=== PATIENT | female | born 1940 | race Caucasian/White ===

== ENCOUNTER → 2018-07-07 | Outpatient (CLI) | payer OTHER ==
[~2018-07-07] MED LIST: ASPIRIN325 PO; CALCIUM 600 +1 EAC1 PO; CENTRUM SILVER1 EAC2 PO; CYMBALTA60 MG PO; DIOVAN HCT 1601 EAC1 PO; FIBER500 MG PO; FISH OIL 1,001000 M2 PO; FLONASE 0.05%50 MCG NASAL; JANUMET XR 1001 EACH PO; LIPITOR 20 MG T20 M1 PO; NEXIUM40 MG PO; RECLAST 55 MG/1002 IV; TOPROL XL100 MG PO; TYLENOL325 MG PO; VALIUM5 MG PO; VITAMINC500 PO
== END ==
LOC: NUC 10:12
DX: M85.89 Other specified disorders of bone density and structure, multiple sites (principal); M81.0 Age-related osteoporosis without current pathological fracture; Z78.0 Asymptomatic menopausal state

== ENCOUNTER → 2019-03-31 | Outpatient (CLI) | payer OTHER ==
[~2019-03-31] VITALS: Ht 175.3 cm; Wt 59.0 kg
[~2019-03-31] MED LIST changes: +DIAZEPAM 2MG TAB2 MG PO; +FIBER LAXATIVE500 MG PO; +MULTIVITAMINS1 EAC7 PO; +PRANDIN2 MG PO; +PROLIA60 MG/1 ML SUBQ
--- NOTE | ~2019-03-31 | P ---
[facility] [place] [address] PROCEDURE REPORT Name: AMBERLY RANGEL Room #: REG [facility]#: [id number] Admission: 03/31/19 Attend Phys: Alberto Haque MD Discharge: Date of : 42 Report #: [id number] THIS REPORT FOR: //name// CC: Alberto Ceballos MD DATE OF SERVICE: 03/31/2019 OUTPATIENT COLONOSCOPY REPORT BRIEF HISTORY: The patient is a 79-year-old woman for average risk screening colonoscopy. PREOPERATIVE DIAGNOSIS: Average risk screening colonoscopy. POSTOPERATIVE DIAGNOSIS: Moderate sigmoid diverticulosis coli. MEDICATIONS: Deep sedation with propofol per Anesthesia. SPECIMEN: None. ESTIMATED BLOOD LOSS: None. PROCEDURE: Colonoscopy to cecum and terminal ileum. FINDINGS: Prior to propofol sedation, procedure of colonoscopy discussed with the patient as well as potential risks and its complications. She indicates she understands and desires to proceed. DESCRIPTION OF PROCEDURE: With the patient in left lateral decubitus position, digital examination was completed, which revealed no abnormalities. Subsequently, the Olympus video colonoscope was introduced in the rectum, advanced under direct vision to the cecum. Done with some difficulty, but the cecum was reached, identified by the ileocecal valve and the appendiceal orifice. I was able to visualize the distal segment of terminal ileum, which was inspected and noted to be unremarkable. At that point, the scope was slowly withdrawn and careful circumferential views obtained. Upon slow withdrawal of the scope, the prep was limited in the proximal colon. She did have difficulty with the prep, although she reported the stools were clear. There was a thin stool material adherent to the noyola of the proximal colon all obviously not be removed. We irrigated as best we can and suctioned as best we can but could not remove all the material. The views of the proximal colon were fair. However, as we withdrew the scope distally, the prep improved in the distal colon and the prep was estimated to be good. The mucosa was within normal limits, normal vascular pattern, and normal light reflex. No neoplastic lesions were seen. [facility] [address] [place] [address] PROCEDURE REPORT Name: AMBERLY RANGEL Caty Room #: REG [facility]#: [id number] Admission: 03/31/19 Attend Phys: Alberto Haque MD Discharge: Date of : 42 Report #: [id number] However, due to the adherent material in the proximal colon, a small lesion could have been overlooked. In the sigmoid colon, there was [id number] diverticular disease without endoscopic evidence of diverticulitis. Scope was withdrawn in the rectum, no abnormalities were seen. Upon retroflexion, no abnormalities were seen. Scope was withdrawn. The patient tolerated the procedure well. CONDITION OF THE PATIENT UPON DISCHARGE: Following procedure, the patient drowsy, aroused, conversant and will be discharged home when fully ambulatory. INSTRUCTIONS TO THE PATIENT AND FAMILY AT THE TIME OF DISCHARGE: No neoplastic lesions were seen. In view of the limitations of prep in the proximal colon, suggest followup colon exam. I would suggest consideration of colonoscopy in about 3 years. She will return to the care of Dr. Ceballos and return to see me as needed. By: [id number] Alberto Haque MD /nt
== END | disposition home or self-care (01) ==
LOC: GI 03-10 06:40
DX: Z12.11 Encounter for screening for malignant neoplasm of colon (principal); K57.30 Diverticulosis of large intestine without perforation or abscess without bleeding; I10 Essential (primary) hypertension; E11.9 Type 2 diabetes mellitus without complications; E78.00 Pure hypercholesterolemia, unspecified; K21.9 Gastro-esophageal reflux disease without esophagitis; M81.0 Age-related osteoporosis without current pathological fracture; Z98.890 Other specified postprocedural states; Z79.899 Other long term (current) drug therapy; Z91.041 Radiographic dye allergy status; Z90.5 Acquired absence of kidney; Z90.49 Acquired absence of other specified parts of digestive tract; Z85.528 Personal history of other malignant neoplasm of kidney; Z88.0 Allergy status to penicillin; Z95.1 Presence of aortocoronary bypass graft; Z79.82 Long term (current) use of aspirin
CPT/HCPCS: 62110; 62900

== ENCOUNTER → 2019-04-26 | Outpatient (CLI) | payer OTHER | LOC: SJCVCIMAG 04-20 09:59 | DX: I25.10 Atherosclerotic heart disease of native coronary artery without angina pectoris (principal); E78.00 Pure hypercholesterolemia, unspecified; I70.1 Atherosclerosis of renal artery; E11.9 Type 2 diabetes mellitus without complications; I10 Essential (primary) hypertension; I65.23 Occlusion and stenosis of bilateral carotid arteries; R07.9 Chest pain, unspecified ==

== ENCOUNTER → 2019-05-23 | Outpatient (CLI) | payer OTHER | LOC: SJCVCIMAG 11:31 | DX: I08.8 Other rheumatic multiple valve diseases (principal); I25.10 Atherosclerotic heart disease of native coronary artery without angina pectoris; E11.9 Type 2 diabetes mellitus without complications ==

== ENCOUNTER → 2020-01-30 | Outpatient (CLI) | payer OTHER | LOC: SJCVCIMAG 13:03 | PROVIDERS: ATTEND Internal Medicine Cardiovascular Disease | DX: I65.23 Occlusion and stenosis of bilateral carotid arteries (principal); R94.31 Abnormal electrocardiogram [ECG] [EKG]; I25.10 Atherosclerotic heart disease of native coronary artery without angina pectoris; I10 Essential (primary) hypertension; E78.00 Pure hypercholesterolemia, unspecified; E11.9 Type 2 diabetes mellitus without complications; I70.1 Atherosclerosis of renal artery; Z79.899 Other long term (current) drug therapy ==

== ENCOUNTER → 2020-02-09 | Outpatient (CLI) | payer OTHER | LOC: SJCVCIMAG 08:55 | PROVIDERS: ATTEND Internal Medicine Cardiovascular Disease | DX: R00.0 Tachycardia, unspecified (principal); I25.10 Atherosclerotic heart disease of native coronary artery without angina pectoris; Z79.82 Long term (current) use of aspirin; Z79.899 Other long term (current) drug therapy ==

== ENCOUNTER → 2020-09-12 | Outpatient (CLI) | payer OTHER | LOC: SJCVCIMAG 08:10 | PROVIDERS: ATTEND Internal Medicine Cardiovascular Disease | DX: I65.23 Occlusion and stenosis of bilateral carotid arteries (principal); R94.31 Abnormal electrocardiogram [ECG] [EKG]; I11.9 Hypertensive heart disease without heart failure; I25.810 Atherosclerosis of coronary artery bypass graft(s) without angina pectoris; I10 Essential (primary) hypertension; E78.00 Pure hypercholesterolemia, unspecified; E11.9 Type 2 diabetes mellitus without complications; I70.1 Atherosclerosis of renal artery; Z95.1 Presence of aortocoronary bypass graft; Z95.5 Presence of coronary angioplasty implant and graft; Z90.710 Acquired absence of both cervix and uterus; Z90.49 Acquired absence of other specified parts of digestive tract; Z88.0 Allergy status to penicillin; Z88.8 Allergy status to other drugs, medicaments and biological substances; Z79.82 Long term (current) use of aspirin; Z79.899 Other long term (current) drug therapy; Z82.49 Family history of ischemic heart disease and other diseases of the circulatory system ==

== ENCOUNTER → 2021-05-16 | Outpatient (CLI) | payer OTHER | LOC: SJCVCIMAG 05-09 07:59 | PROVIDERS: ATTEND Internal Medicine Cardiovascular Disease | DX: I65.23 Occlusion and stenosis of bilateral carotid arteries (principal); I11.9 Hypertensive heart disease without heart failure; R94.31 Abnormal electrocardiogram [ECG] [EKG]; I25.10 Atherosclerotic heart disease of native coronary artery without angina pectoris; I77.9 Disorder of arteries and arterioles, unspecified; E11.9 Type 2 diabetes mellitus without complications; I70.1 Atherosclerosis of renal artery; E78.00 Pure hypercholesterolemia, unspecified; Z98.61 Coronary angioplasty status; Z98.890 Other specified postprocedural states; Z79.82 Long term (current) use of aspirin; Z79.899 Other long term (current) drug therapy; Z88.0 Allergy status to penicillin; Z88.5 Allergy status to narcotic agent; Z88.8 Allergy status to other drugs, medicaments and biological substances ==